=== PATIENT | male | born 1960 | race Caucasian/White ===

== ENCOUNTER 2018-10-29 21:21 | Emergency (ER) | payer BC, OTHER ==
[~2018-10-29] VITALS: Ht 177.8 cm; Wt 86.2 kg
[2018-10-29 21:22] VITALS: BP 122/72
== END 2018-10-29 22:05 | disposition home or self-care (01) ==
LOC: ER 21:21
DX: S60.426A Blister (nonthermal) of right little finger, initial encounter (principal); W57.XXXA Bitten or stung by nonvenomous insect and other nonvenomous arthropods, initial encounter; Y93.89 Activity, other specified; Y92.89 Other specified places as the place of occurrence of the external cause; Y99.8 Other external cause status